=== PATIENT | male | born 1945 | race Caucasian/White ===

== ENCOUNTER 2017-02-17 10:40 | Emergency (ER) | payer OTHER ==
--- NOTE | 2017-02-17 12:53 | CPEKG ---
Heart Rate: 64 RR Interval: 938 P-R Interval: 172 QRSD Interval: 88 QT Interval: 460 QTC Interval: 475 P Neal: 37 QRS Neal: -16 T Wave Neal: 173 EKG Severity - ABNORMAL ECG - EKG Impression: SINUS RHYTHM EKG Impression: RAOUL, CONSIDER BIATRIAL ABNORMALITIES EKG Impression: BORDERLINE LEFT AXIS DEVIATION EKG Impression: CONSIDER ANTEROSEPTAL INFARCT EKG Impression: ABNORMAL T, CONSIDER ISCHEMIA, ANT-LAT LEADS Electronically Signed By: Radha Kent 17-Feb-2017 20:48:38
[2017-02-17 13:06] LABS: % IMMATURE GRANULYOCYTES 0.4 % (0.0-1.1); ABSOLUTE IMMATURE GRANULOCYTES 0.04 10^3/uL (0.00-0.10); ADD DIFF? NO; ADD MORPH? NO; ADD SCAN? NO; ATYPICAL LYMPHOCYTE FLAG 0 (0-99); FRAGMENT RBC FLAG 0 (0-99); HEMOGLOBIN 17.4 g/dL (13.7-17.5); LEFT SHIFT FLG 0 (0-99); LIPEMIA HEMOLYSIS FLAG 90 (0-99); MEAN CELL HEMOGLOBIN 29.7 pg (27.9-34.1); MEAN CELL HEMOGLOBIN CONCENTR. 34.1 g/dL (32.4-36.7); MEAN PLATELET VOLUME 10.4 fL (8.7-11.7); PLATELET CLUMPS FLAG 0 (0-99); PLATELET COUNT 259 10^3/uL (150-400); RED BLOOD CELL COUNT 5.86 10^6/uL (4.40-6.38); RED CELL DISTRIBUTION WIDTH 12.7 % (11.5-15.2)
[2017-02-17] MEDS ORDERED: IOPAMIDOL (ISOVUE-370) 150 ML BTL IV ONE (13:15)
[2017-02-17] MEDS ORDERED: LIDOCAINE 1% 300 MG/30 ML SDV ONE (13:15)
--- NOTE | 2017-02-17 13:16 | EDPHY ---
H & P Stated Complaint: sent from pcp for abnormal ekg--pt has no s/s- HPI/ROS: CHIEF COMPLAINT: Abnormal EKG HISTORY OF PRESENT ILLNESS: The patient is a 72 y/o male with arriving POV from his PCP's office due to an abnormal EKG. His medical history includes CABG, CAD , hypercholesterolemia, and hypertension. He went to Dr. Duncan office today to establish care and due to a concerning EKG she referred him to the ED. He denies any complaints including chest pain, dyspnea, lightheadedness, nausea, abdominal pain. He reports he always has an abnormal EKG, but does not carry a copy with him and [place]. His last stress test was normal. He does note intermittent left finger paresthesias for the past couple months that he attributes to left rotator cuff injury. He is a nonsmoker and has no history of diabetes. REVIEW OF SYSTEMS: A 10 point review of systems was performed and is negative with the exception of the elements mentioned in the history of present illness. Past medical history: Abnormal EKG, CAD, hypercholesterolemia, hypertension Past surgical history: CABG 07/23/15 Family history: noncontributory Social history: just moved here from [place]. Avid runner. Nonsmoker. Occasional alcohol use. No illicit drug use. Retired from construction industry. General Appearance: Alert, no acute distress. Eyes: Pupils equal and round, no conjunctival injection, no discharge. ENT, Mouth: Mucous membranes are moist, no oropharyngeal erythema or edema. Neck: No lymphadenopathy, supple. Respiratory: Lung sounds are distant but clear to auscultation; no wheezes, rales, or rhonchi. Cardiovascular: Occasional ectopy, regular rate; no murmur, rub, or gallop. Gastrointestinal: Abdomen is soft and non tender, no masses or organomegaly, bowel sounds normal. Skin: Warm and dry, no rashes, normal color. Back: Nontender to palpation over the thoracolumbar spine. Extremities: No lower extremity edema, no calf tenderness or swelling. Neurological: Alert and oriented. Moving all four extremities easily and equally. Psychiatric: Normal affect. - Personal History Current Tetanus/Diphtheria Vaccine: Unsure Current Tetanus Diphtheria and Acellular Pertussis (TDAP): Unsure - Medical/Surgical History Hx Asthma: No Hx Chronic Respiratory Disease: No Hx Diabetes: No Hx Cardiac Disease: Yes Hx Renal Disease: No Hx Cirrhosis: No Hx Alcoholism: No Hx HIV/AIDS: No Hx Splenectomy or Spleen Trauma: No Other PMH: Bypass 2016 [place]. htn. hyperlipidemia - Social History Smoking Status: Never smoked Constitutional: Initial Vital Signs Temperature (C) 37.0 C 02/17/17 10:49 Heart Rate 77 02/17/17 10:49 Respiratory Rate 16 02/17/17 10:49 Blood Pressure 126/73 H 02/17/17 10:49 O2 Sat (%) 98 02/17/17 10:49 O2 Delivery Mode Room Air Allergies/Adverse Reactions: No Known Allergies Allergy (Unverified 02/17/17 10:48) Home Medications: Medication Instructions Recorded Lipitor 02/17/17 Lisinopril 02/17/17 Medical Decision Making - Diagnostics Imaging: I viewed and interpreted images myself ED Course/Re-evaluation: This is a 72 y/o male with several cardiac risk factors who presents from his PCP's office for evaluation of an abnormal EKG. He is completely asymptomatic. His EKG showed a possible anteroseptal infarct and a Cardiac Alert was called due to this. EKG reviewed by Dr. Ambrose. Upon assessment, alert was downgraded due to lack of symptoms and patient report of an abnormal EKG since age 27. He has occasional ectopy and distant breath sounds on exam, but is generally well- appearing. Plan for cardiac workup including IV, labs, EKG, chest x-ray. The 12 lead EKG was interpreted by myself. Sinus mechanism rate 64. PVCs. ST abnormalities anterolateral leads. See hard copy and/or "tracemaster" electronic copy for interpretation. Reassessed patient and discussed work up. His chest x-ray shows nothing acute and his labs are unremarkable. His old EKG looks similar except for V2, which shows ST changes. He remains asymptomatic. I've advised him to keep a copy of his EKG with him at all times. Recommended follow up with his PCP and cardiology. Return precautions discussed. He is comfortable with this plan. Differential Diagnosis: I considered a differential diagnosis that includes but is not limited to acute coronary syndrome, abnormal EKG but unchanged, pericarditis, myositis, and arrhythmia. - Data Points Laboratory Results: Laboratory Results 02/17/17 12:58 02/17/17 12:58 Departure - Departure Disposition: Home, Routine, Self-Care Clinical Impression: Abnormal EKG Condition: Good Instructions: Chest Pain (ED) Additional Instructions: Please follow up with your primary care provider and prior authorization nurse. You've been referred to Dr. Benoit locally. Keep a copy of your EKG with you at all times as it is very informative to any future providers that may care for you. Return to the ED for chest pain, shortness of breath, lightheadedness, or other worsening of condition. Referrals: BUZZ DUNCAN [Primary Care Provider] - As per Instructions Moses Benoit MD [Medical Doctor] - As per Instructions Report Scribed for: Radha Kent Report Scribed by: Skye Jsoe Date of Report: 02/17/17 Time of Report: 13:16 Physician Review and Approval Statement: 02/20/17 20:35 Portions of this note were transcribed by the medical education specialist. I, Dr. Radha Kent, personally performed the history, physical exam, and medical decision- making; and confirmed the accuracy of the information in the transcribed note.
[2017-02-17 13:27] LABS: TROPONIN I 0.021 ng/mL (0.000-0.034)
[2017-02-17 13:30] LABS: ANION GAP 12 mEq/L (8-16); CALCIUM 9.8 mg/dL (8.5-10.4); CARBON DIOXIDE 25 mEq/l (22-31); CHLORIDE 102 mEq/L (97-110); CREATININE 0.8 mg/dL (0.7-1.3); GLOMERULAR FILTRATION RATE > 60; GLUCOSE 90 mg/dL (70-100); POTASSIUM 4.3 mEq/L (3.5-5.2); SODIUM 139 mEq/L (134-144)
[2017-02-17 14:37] VITALS: BP 139/87; PULSE 55; RESP 18; TEMP 97.5; O2SAT 93
== END 2017-02-17 14:37 | disposition home or self-care (01) ==
DX: R94.31 Abnormal electrocardiogram [ECG] [EKG] (principal); I25.810 Atherosclerosis of coronary artery bypass graft(s) without angina pectoris; I10 Essential (primary) hypertension
CPT/HCPCS: J1644; Q9967